=== PATIENT | male | born 1995 | race Caucasian/White ===

== ENCOUNTER 2017-02-24 11:39 | Outpatient (CLI) | payer OTHER ==
[~2017-02-24] VITALS: Ht 170.2 cm; Wt 81.6 kg
[~2017-02-24 11:39] MED LIST: PROTPAK PO
[2017-02-24] MEDS ORDERED: NS 1,000 ML IV ONE (13:15)
--- NOTE | 2017-02-24 14:27 | ROOR ---
Patient Name: Luis E King Procedure Date: 02/24/2017 2:14 PM Date of : 1995 Age: 21 Room: [facility] Gender: Male Note Status: Finalized Procedure: Upper GI endoscopy Indications: Heartburn, Follow-up of gastroparesis (previous EGD in 2016 with retained food material after >8 hour fast) Providers: Victor M COLBERT MD Referring MD: ARMANDO RAVI MD Requesting Provider: Medicines: Monitored Anesthesia Care Complications: No immediate complications. Procedure: Pre-Anesthesia Assessment: - The heart rate, respiratory rate, oxygen saturations, blood pressure, adequacy of pulmonary ventilation, and response to care were monitored throughout the procedure. The Endoscope was introduced through the mouth, and advanced to the second part of duodenum. The upper GI endoscopy was accomplished without difficulty. The patient tolerated the procedure well. Findings: Mildly severe esophagitis was found at the gastroesophageal junction. The entire examined stomach was normal. The examined duodenum was normal. Impression: - Mild reflux esophagitis. - Normal stomach. - Normal examined duodenum. - No specimens collected. Recommendation: - Continue present medications. - Gastroparesis diet: - Eat smaller, more frequent meals throughout the day. - Low fat diet. - Liquid/soft foods are tolerated better than solid foods. - Low fiber/well cooked vegetables are tolerated better than high fiber/fibrous foods/raw vegetables. - Avoid medications that inhibit gastric/intestinal motility such as narcotic medications. Victor M Colbert MD Victor M COLBERT MD 02/24/2017 2:27:28 PM This report has been signed electronically. Number of Addenda: 0 Note Initiated On: 02/24/2017 2:14 PM Estimated Blood Loss: Estimated blood loss: none.
[2017-02-24] MEDS ORDERED: PROPOFOL 200 MG/20 ML VIAL As Ordered ONE (14:31)
--- NOTE | 2017-02-24 14:38 | ROOR ---
Patient Name: Luis E King Procedure Date: 02/24/2017 2:16 PM Date of : 1995 Age: 21 Room: [facility] Gender: Male Note Status: Finalized Procedure: Colonoscopy Indications: Generalized abdominal pain, Clinically significant diarrhea of unexplained origin Providers: Victor M COLBERT MD Referring MD: ARMANDO RAVI MD Requesting Provider: Medicines: Monitored Anesthesia Care Complications: No immediate complications. Procedure: Pre-Anesthesia Assessment: - The heart rate, respiratory rate, oxygen saturations, blood pressure, adequacy of pulmonary ventilation, and response to care were monitored throughout the procedure. The Colonoscope was introduced through the anus and advanced to 6 cm into the ileum. The colonoscopy was performed without difficulty. The patient tolerated the procedure well. The quality of the bowel preparation was good. Findings: The perianal and digital rectal examinations were normal. Small Internal Hemorrhoids. The colon (entire examined portion) appeared normal. The terminal ileum appeared normal. Impression: - Small Internal Hemorrhoids. - The entire colon is normal. - The examined portion of the ileum was normal. - No specimens collected. - (Irritable Bowel Syndrome/IBS suspected.) Recommendation: - Use fiber, for example Citrucel, Fibercon, Konsyl or Metamucil. - Use Bentyl (dicyclomine) 10 - 20 mg every 4-6 hrs as needed for abdominal pain, diarrhea. - (the script was sent to your pharmacy on file) Victor M Colbert MD Victor M COLBERT MD 02/24/2017 2:38:21 PM This report has been signed electronically. Number of Addenda: 0 Note Initiated On: 02/24/2017 2:16 PM Estimated Blood Loss: Estimated blood loss: none.
[2017-02-24 15:00] VITALS: BP 106/67
== END 2017-02-24 15:15 | disposition home or self-care (01) ==
LOC: M OPP 11:39
PROVIDERS: ATTEND Internal Medicine Gastroenterology
DX: R10.84 Generalized abdominal pain (principal); R19.7 Diarrhea, unspecified; K64.8 Other hemorrhoids; R12 Heartburn; K21.9 Gastro-esophageal reflux disease without esophagitis; K31.84 Gastroparesis; K20.9 Esophagitis, unspecified; F17.290 Nicotine dependence, other tobacco product, uncomplicated; Z79.899 Other long term (current) drug therapy

== ENCOUNTER → 2017-05-04 | Outpatient (CLI) | payer OTHER ==
--- NOTE | 2017-05-04 12:37 | REP ---
NUCLEAR GASTRIC EMPTYING STUDY: 05/04/2017 CLINICAL HISTORY: Gastroparesis, vomiting with postprandial nausea. Upper abdominal pain, early satiety. TECHNIQUE: The patient received 1.08 mCi technetium 99m sulfur colloid in two scrambled eggs with 6 ounces of water. Subsequent anterior and posterior imaging of the stomach and upper abdomen with region of interest drawn around the stomach and with gastric emptying calculated by a semiautomated method imaging for 90 minutes before. The images demonstrate a t-1/2 for gastric emptying of 114 minutes. At 90 minutes, the emptying was 42%. Normal gastric emptying is 90 minutes or less for t-1/2. I do not see evidence of gastroesophageal reflux during the course of this examination. There is activity extending into small bowel in appropriate fashion. IMPRESSION: At 90 minutes, gastric emptying on this study is 42%. The normal t-1/2 is 90 minutes, so this is just below the normal range. The calculated t-1/2 in this patient is 114 minutes. Signed by Timbo Wan MD 05/04/2017 08:35 P
== END ==
LOC: M RAD 08:18
PROVIDERS: ATTEND Physician Assistant Medical
DX: K31.84 Gastroparesis (principal)
CPT/HCPCS: 78264; A9541

== ENCOUNTER → 2017-05-05 | Outpatient (CLI) | payer OTHER | LOC: M LAB 09:28 | PROVIDERS: ATTEND Physician Assistant Medical | DX: R19.7 Diarrhea, unspecified (principal) ==

== ENCOUNTER 2017-09-26 23:47 | Emergency (ER) | payer OTHER ==
[2017-09-27 04:39] LABS: HEMATOCRIT 46.6 % (42.0-52.0); HEMOGLOBIN 16.5 g/dl (13.5-17.5); MEAN CORPUSCULAR HEMOGLOBIN 31.2 pg (27.0-33.0); MEAN CORPUSCULAR HGB CONC 35.4 g/dl (32.0-36.5); MEAN CORPUSCULAR VOLUME 88.1 fl (80.0-96.0); PLATELET COUNT, AUTOMATED 230 10^3/uL (150-450); RED BLOOD COUNT 5.29 10^6/uL (4.30-6.10); RED CELL DISTRIBUTION WIDTH 12.8 % (11.5-14.5); WHITE BLOOD COUNT 7.6 10^3/uL (4.0-10.0)
== END 2017-09-27 05:31 | disposition home or self-care (01) ==
LOC: M ED 23:47
DX: K92.2 Gastrointestinal hemorrhage, unspecified (principal); K92.0 Hematemesis; K31.84 Gastroparesis; Z79.899 Other long term (current) drug therapy
CPT/HCPCS: 85027

== ENCOUNTER 2017-10-17 06:27 | Day surgery (SDC) | payer OTHER ==
[2017-10-17] MEDS: NS 1,000 ML IV (07:06)
[2017-10-17] MEDS ORDERED: PROPOFOL 200 MG/20 ML VIAL As Ordered ×2 (07:38→07:46)
[2017-10-17] MEDS ORDERED: LIDOCAINE 2% INJ 100 MG/5 ML SDV (FOR ANES.) As Ordered (07:38)
== END 2017-10-17 08:23 | disposition home or self-care (01) ==
LOC: M OPP 06:27
DX: K21.0 Gastro-esophageal reflux disease with esophagitis (principal); R12 Heartburn; R11.10 Vomiting, unspecified; F17.220 Nicotine dependence, chewing tobacco, uncomplicated; Z79.899 Other long term (current) drug therapy
CPT/HCPCS: 43239